=== PATIENT | female | born 1970 | race Asian ===

== ENCOUNTER 2022-04-15 17:34 | Emergency (ER) | payer OTHER ==
[~2022-04-15] VITALS: Ht 152.4 cm; Wt 63.5 kg
--- NOTE | 2022-04-15 17:56 | NUR ---
PT WALKED IN C/O HEADACHE S/P SLIP AND FALL WHILE WALKING DOGS. DENIES LOC. PT AMBULATED TO BED WITH STEADY GAIT, BREATHING EVEN AND UNLABORED. AWAITING MD ORDERS.
--- NOTE | 2022-04-15 18:00 | NUR ---
UA COLLECTED AND READY FOR PICKUP
--- NOTE | 2022-04-15 18:30 | NUR ---
PT TAKEN TO CT.
[2022-04-15 19:58] VITALS: BP 118/86
--- NOTE | 2022-04-15 19:58 | NUR ---
Patient discharged to home in stable condition. Written and verbal after care instructions given. Patient verbalizes understanding of instruction.
== END 2022-04-15 19:59 | disposition home or self-care (01) ==
LOC: ER 17:54
DX: S00.03XA Contusion of scalp, initial encounter (principal); W01.0XXA Fall on same level from slipping, tripping and stumbling without subsequent striking against object, initial encounter; Y93.89 Activity, other specified; Y92.89 Other specified places as the place of occurrence of the external cause; Y99.8 Other external cause status
CPT/HCPCS: 70450-TC; 72125-TC